=== PATIENT | male | born 1985 | race Two or more races ===

== ENCOUNTER 2021-11-29 16:31 | Emergency (ER) | payer BC, OTHER ==
[~2021-11-29] VITALS: Ht 175.3 cm; Wt 90.7 kg
[2021-11-29 16:38] VITALS: BP 133/91
[2021-11-29] MEDS ORDERED: TETANUS-DIPTH-ACEL PERTUSSIS 0.5ML SYR Tdap IM ONE (19:15)
== END 2021-11-29 20:46 | disposition home or self-care (01) ==
LOC: ER 16:31
DX: S02.92XA Unspecified fracture of facial bones, initial encounter for closed fracture (principal); Z88.0 Allergy status to penicillin; Y08.89XA Assault by other specified means, initial encounter; Y93.89 Activity, other specified; Y92.89 Other specified places as the place of occurrence of the external cause; Y99.8 Other external cause status
CPT/HCPCS: 70486; 73090; 90715